=== PATIENT | male | born 1970 | race African-American/Black ===

== ENCOUNTER 2019-01-03 09:28 | Emergency (ER) | payer MEDICARE ==
--- NOTE | 2019-01-03 10:12 | RAD ---
XR Shoulder Rt 3 View STANDARD HISTORY: Right shoulder pain FINDINGS: No fracture or dislocation is identified. There are degenerative changes in the acromioclavicular dinh nt.
== END 2019-01-03 10:45 | disposition home or self-care (01) ==
LOC: SCSER 09:28
DX: M25.511 Pain in right shoulder (principal); G89.29 Other chronic pain; I10 Essential (primary) hypertension; F17.210 Nicotine dependence, cigarettes, uncomplicated

== ENCOUNTER 2025-03-08 19:51 | Emergency (ER) | payer MEDICARE, MEDICAID ==
[2025-03-08] MEDS ORDERED: Acetaminophen 500 MG TAB ONE (22:07)
[2025-03-08 22:08] LABS: #Basophils 0.04 10x3/uL (0.0-0.2); #Eosinophils 0.31 10x3/uL (0.0-0.7); #Monocytes 0.37 10x3/uL (0.11-0.59); #Neutrophils 2.63 10x3/uL (1.40-6.50); %Basophils 0.8 % (0.0-1.0); %Eosinophils 6.0 % (0.0-10.0); %Lymphocytes 34.8 % (21.0-51.0); %Monocytes 7.2 % (0.0-10.0); %Neutrophils 50.8 % (42.0-75.0); Hematocrit 37.9 % (42.0-52.0); Hemoglobin 12.4 g/dL (14.0-18.0); Mean Corpuscular Hemoglobin 27.4 pg (27.0-31.0); Mean Corpuscular Volume 83.8 fL (78.0-98.0); Platelet Count 207 10x3/uL (130-400); Red Blood Cell (RBC) Count 4.52 mill/uL (4.70-6.10); White Blood Cell (WBC) Count 5.17 10x3/uL (4.8-10.8)
[2025-03-08 23:40] LABS: ALT (SGPT) 18 U/L (Less than 45); AST (SGOT) 26 U/L (11-34); Albumin 3.8 g/dL (3.1-4.5); Alkaline Phosphatase 76 U/L (40-110); Anion Gap 13 mmol/L (10-20); BUN (Urea Nitrogen) 18 mg/dL (8.4-25.7); Bilirubin, Total 0.2 mg/dL (0.3-1.2); Calc. Creatinine Clearance 0 mL/min (70-130); Calcium 8.4 mg/dL (7.8-10.44); Carbon Dioxide 23 mmol/L (22-29); Chloride 107 mmol/L (98-107); Globulin 3.4 g/dL (2.4-3.5); Glucose 112 mg/dL (70-105); Potassium 4.2 mmol/L (3.5-5.1); Sodium 139 mmol/L (136-145)
== END 2025-03-09 00:38 | disposition home or self-care (01) ==
LOC: ERS 19:51
DX: M25.562 Pain in left knee (principal); I10 Essential (primary) hypertension; F17.210 Nicotine dependence, cigarettes, uncomplicated; W22.8XXA Striking against or struck by other objects, initial encounter
CPT/HCPCS: 80053; 85025; 86141; 96374